=== PATIENT | female | born 1985 | race Caucasian/White ===

== ENCOUNTER 2020-10-30 12:08 | Inpatient (IN) | payer BC, OTHER ==
[2020-12-12] MEDS ORDERED: PHENYLEPHRINE-NS 100 MCG/ML 10 ML SYRINGE ONE (11:03)
[2020-12-12] MEDS ORDERED: Ondansetron PF 4 MG/2 ML Vial ONE (11:03)
[2020-12-12] MEDS ORDERED: Phenylephrine 10 MG/ML VIAL ONE (11:03)
[2020-12-12] MEDS ORDERED: Oxytocin 10 UNITS/ML VIAL ONE (11:03)
[2020-12-12] MEDS ORDERED: Morphine PF 10 MG/10 ML VIAL ONE (11:04)
[2020-12-12] MEDS ORDERED: Ketorolac Tromethamine 30 MG/ML VIAL ONE (11:04)
[2020-12-12] MEDS ORDERED: ePHEDrine Sulfate 50 MG/10 ML VIAL ONE (11:04)
[2020-12-12 11:15] VITALS: BMI 28.1
[2020-12-12] MEDS ORDERED: Lactated Ringer's 1,000 ML IV SCH (11:23)
[2020-12-12] MEDS ORDERED: hydrALAZINE 20 MG/ML VIAL SLOW IVP PRN (11:23)
[2020-12-12] MEDS ORDERED: Bicitra 30 ML UDCUP PO PRN (11:23)
[2020-12-12] MEDS ORDERED: Famotidine/PF 20 mg/2ml Vial SLOW IVP PRN (11:23)
[2020-12-12] MEDS ORDERED: Promethazine HCl 25 MG/ML VIAL IM PRN ×2 (11:23→11:43)
[2020-12-12] MEDS ORDERED: CEFAZOLIN 2 GM in Premix Bag 1 BAG IVPB SCH (11:23)
[2020-12-12] MEDS ORDERED: Ondansetron PF 4 MG/2 ML Vial IVP PRN ×2 (11:23→11:43)
[2020-12-12] MEDS ORDERED: Naloxone HCl 0.4 mg/ml Vial IVP PRN ×2 (11:43)
[2020-12-12] MEDS ORDERED: Promethazine HCl 25 MG SUPP PR PRN (11:43)
[2020-12-12] MEDS ORDERED: L&D-Morphine 4 MG/ML VIAL SLOW IVP PRN (11:43)
[2020-12-12] MEDS ORDERED: Meperidine HCl/PF 25 MG/ML VIAL SLOW IVP PRN (11:43)
[2020-12-12] MEDS ORDERED: Eucerin (Mineral Oil/Petrolatum,White) 30 gm Jar TOP PRN (11:43)
[2020-12-12] MEDS ORDERED: diphenhydrAMINE 50 MG/ML VIAL IVP PRN (11:43)
[2020-12-12] MEDS ORDERED: HYDROmorphone 2 MG/ML VIAL SLOW IVP PRN (11:43)
[2020-12-12] MEDS ORDERED: Naloxone HCl 0.4 mg/ml Vial IV PRN (11:43)
[2020-12-12] MEDS ORDERED: Ondansetron HCl/PF 4 MG/2 ML Vial IVP PRN (11:43)
[2020-12-12] MEDS ORDERED: Ketorolac Tromethamine 30 MG/ML VIAL IVP SCH (11:45)
[2020-12-12] MEDS ORDERED: Communication Order-Pharmacy FS SCH (11:45)
[2020-12-12 12:12] LABS: Hemoglobin 13.8 g/dL (12.0-15.5); Mean Corpuscular HGB CONC 33.7 g/dL (32.0-36.0); Mean Corpuscular Hemoglobin 31.9 pg (27.0-33.0); Mean Corpuscular Volume 94.5 fl (81.6-98.3); Mean Platelet Volume 13.1 fl (7.4-10.4); Platelet Count 146 10x3/uL (150-450); RBC Distribution Width 13.8 % (11.5-14.5); Red Blood Cell (RBC) Count 4.33 10x6/uL (3.90-5.03); White Blood Cell (WBC) Count 11.4 10x3/uL (3.5-10.5)
[2020-12-12 12:40] LABS: Hep B Surf Ag Non-Reactive S/CO (NonReactive); Syphilis Antibody Nonreactive (Nonreactive); Syphilis Antibody Index 0.04 S/CO (<1.00 Non-Reactive)
[2020-12-12 13:00] LABS: HBSAg Index 0.15 S/CO (0-0.99)
[2020-12-12] MEDS ORDERED: NS w/ Oxytocin 30 units 500 ML ONE (16:08)
[2020-12-12] MEDS: Ketorolac Tromethamine 30 MG/ML VIAL IVP PRN (17:45)
[2020-12-12] MEDS ORDERED: Fentanyl 100 MCG/2 ML VIAL ONE (22:11)
[2020-12-12] MEDS ORDERED: Fentanyl 100 MCG/2 ML VIAL SLOW IVP SCH (22:15)
[2020-12-13] MEDS: Ketorolac Tromethamine 30 MG/ML VIAL IVP PRN (00:04)
[2020-12-13] MEDS ORDERED: HYDROcodone/Acetaminophen 5/325 mg Tablet PO PRN (03:55)
[2020-12-13 05:20] LABS: Hemoglobin 8.8 g/dL (12.0-15.5); Mean Corpuscular HGB CONC 33.2 g/dL (32.0-36.0); Mean Corpuscular Hemoglobin 31.5 pg (27.0-33.0); Mean Platelet Volume 12.4 fl (7.4-10.4); Platelet Count 210 10x3/uL (150-450); RBC Distribution Width 14.1 % (11.5-14.5); Red Blood Cell (RBC) Count 2.79 10x6/uL (3.90-5.03); White Blood Cell (WBC) Count 29.8 10x3/uL (3.5-10.5)
[2020-12-13 06:15] LABS: Band 20 % (5-11); Lymphocytes 6 % (21-51); Monocytes 3 % (0-10); Neutrophil 71 % (42-75)
[2020-12-13 06:18] LABS: Large Platelets MODERATE; Platelet Morphology Comment Appears Adequate
[2020-12-13 06:19] LABS: MDiff Complete? YES; Manual Diff?? YES
[2020-12-13] MEDS ORDERED: CEFAZOLIN 2 GM in Premix Bag 1 BAG IVPB SCH (07:00)
[2020-12-13] MEDS ORDERED: PROPOFOL 20 ML ONE (07:04)
[2020-12-13] MEDS ORDERED: Fentanyl 100 MCG/2 ML VIAL ONE ×2 (07:04→09:58)
[2020-12-13] MEDS ORDERED: Lidocaine 1% PF 5 ML VIAL ONE (07:05)
[2020-12-13] MEDS ORDERED: Rocuronium Bromide 10 MG/ML (10ML VIAL) ONE (07:05)
[2020-12-13] MEDS ORDERED: Succinylcholine 200 MG/10 ml SYRINGE FS ONE (07:05)
[2020-12-13] MEDS ORDERED: Glycopyrrolate 0.2 MG/ML 5 ML SYRINGE ONE (07:05)
[2020-12-13] MEDS ORDERED: Dexamethasone 4 mg/ml Vial ONE (07:08)
[2020-12-13] MEDS ORDERED: Ondansetron PF 4 MG/2 ML Vial ONE (07:08)
[2020-12-13] MEDS ORDERED: Sodium Chloride 0.9% 250 ML 250 ML ONE (07:11)
[2020-12-13] MEDS ORDERED: Tranexamic Acid 1,000 MG in Sodium Chloride 0.9% 250 ML 250 ML IVPB SCH (07:30)
[2020-12-13] MEDS ORDERED: Tranexamic Acid 1,000 MG in Sodium Chloride 0.9% 100 ML IVPB SCH (07:30)
[2020-12-13] MEDS ORDERED: EPINEPHrine 1 MG/ML AMP ONE (08:26)
[2020-12-13] MEDS ORDERED: Bupivacaine PF 0.5% 30 ML VIAL ONE (08:27)
[2020-12-13] MEDS ORDERED: Neosporin Ophth Soln 10 ml Bottle ONE (09:30)
[2020-12-13] MEDS ORDERED: Promethazine HCl 25 MG/ML VIAL SLOW IVP PRN (11:01)
[2020-12-13] MEDS ORDERED: Ondansetron HCl/PF 4 MG/2 ML Vial IVP PRN (11:01)
[2020-12-13] MEDS ORDERED: Promethazine HCl 25 MG/ML VIAL IM PRN (11:01)
[2020-12-13] MEDS ORDERED: Adacel (T-DAP) 0.5 ML SYRINGE IM ONE (12:02)
[2020-12-13] MEDS ORDERED: diphenhydrAMINE 25 MG CAP PO PRN (12:02)
[2020-12-13] MEDS ORDERED: Acetaminophen 325 MG TAB PO PRN (12:02)
[2020-12-13] MEDS ORDERED: Ondansetron PF 4 MG/2 ML Vial IVP PRN (12:02)
[2020-12-13] MEDS ORDERED: Bisacodyl 10 MG SUPP PR PRN (12:02)
[2020-12-13] MEDS ORDERED: Zolpidem Tartrate 5 MG TAB PO PRN (12:02)
[2020-12-13] MEDS ORDERED: Lanolin Ointment 7 GM TUBE TOP PRN (12:02)
[2020-12-13] MEDS ORDERED: Meperidine HCl/PF 25 MG/ML VIAL IM PRN (12:02)
[2020-12-13] MEDS ORDERED: hydrALAZINE 20 MG/ML VIAL SLOW IVP PRN (12:02)
[2020-12-13] MEDS: Morphine 2 MG/ML VIAL SLOW IVP PRN ×2 (13:20→19:20)
[2020-12-13] MEDS: Simethicone Chewable 80 MG TAB PO PRN (13:20)
[2020-12-13] MEDS: Lactated Ringer's 1,000 ML IV SCH ×2 (14:05→17:14)
[2020-12-13] MEDS: Ibuprofen 800 MG TAB PO SCH ×2 (15:57→22:42)
[2020-12-13] MEDS: Cepastat Lozenges 1 LOZ PO PRN (16:23)
[2020-12-13] MEDS: CEFAZOLIN 2 GM in Premix Bag 1 BAG IVPB SCH (20:27)
[2020-12-13] MEDS: Docusate Calcium (SURFAK) 240 MG CAP PO SCH (22:41)
[2020-12-13] MEDS: Ferrous Sulfate 325 MG TAB PO SCH (22:44)
[2020-12-14] MEDS: Simethicone Chewable 80 MG TAB PO PRN (00:11)
[2020-12-14] MEDS: Morphine 2 MG/ML VIAL SLOW IVP PRN (00:11)
[2020-12-14] MEDS: Cepastat Lozenges 1 LOZ PO PRN ×2 (00:15→09:00)
[2020-12-14] MEDS: CEFAZOLIN 2 GM in Premix Bag 1 BAG IVPB SCH ×3 (04:07→20:04)
[2020-12-14 06:53] LABS: Mean Corpuscular Hemoglobin 31.6 pg (27.0-33.0); Mean Corpuscular Volume 92.9 fl (81.6-98.3); Mean Platelet Volume 11.2 fl (7.4-10.4); Platelet Count 130 10x3/uL (150-450); RBC Distribution Width 15.2 % (11.5-14.5); Red Blood Cell (RBC) Count 2.53 10x6/uL (3.90-5.03); White Blood Cell (WBC) Count 18.3 10x3/uL (3.5-10.5)
[2020-12-14] MEDS: Lactated Ringer's 1,000 ML IV SCH ×2 (07:15→11:55)
[2020-12-14] MEDS: Ibuprofen 800 MG TAB PO SCH ×2 (07:16→13:41)
[2020-12-14] MEDS: Ferrous Sulfate 325 MG TAB PO SCH ×2 (10:03→20:16)
[2020-12-14] MEDS: Docusate Calcium (SURFAK) 240 MG CAP PO SCH ×2 (10:03→20:16)
[2020-12-14] MEDS: Prenatal Vitamin 1 TAB PO SCH (10:03)
[2020-12-14] MEDS: HYDROcodone/Acetaminophen 5/325 mg Tablet PO PRN ×3 (10:07→20:16)
[2020-12-15] MEDS: Simethicone Chewable 80 MG TAB PO PRN ×2 (00:20→08:59)
[2020-12-15] MEDS: Ibuprofen 800 MG TAB PO SCH ×5 (00:20→23:34)
[2020-12-15] MEDS: Lactated Ringer's 1,000 ML IV SCH ×2 (04:30→05:19)
[2020-12-15] MEDS: CEFAZOLIN 2 GM in Premix Bag 1 BAG IVPB SCH (04:32)
[2020-12-15] MEDS: Ferrous Sulfate 325 MG TAB PO SCH ×2 (08:59→23:33)
[2020-12-15] MEDS: Docusate Calcium (SURFAK) 240 MG CAP PO SCH ×2 (08:59→23:33)
[2020-12-15] MEDS: Prenatal Vitamin 1 TAB PO SCH (08:59)
[2020-12-15] MEDS: HYDROcodone/Acetaminophen 5/325 mg Tablet PO PRN ×2 (09:06→13:22)
[2020-12-15] MEDS ORDERED: Cefadroxil Hydrate 250 mg/5 ml Suspensio PO SCH (13:00)
[2020-12-15] MEDS: Cefadroxil Hydrate 250 mg/5 ml Suspensio PO SCH (23:33)
[2020-12-16] MEDS: HYDROcodone/Acetaminophen 5/325 mg Tablet PO PRN ×2 (04:31→18:47)
[2020-12-16] MEDS: Ibuprofen 800 MG TAB PO SCH ×4 (07:30→23:33)
[2020-12-16 08:36] LABS: Hemoglobin 7.4 g/dL (12.0-15.5); Mean Corpuscular HGB CONC 33.3 g/dL (32.0-36.0); Mean Corpuscular Hemoglobin 31.6 pg (27.0-33.0); Mean Corpuscular Volume 94.9 fl (81.6-98.3); Mean Platelet Volume 10.3 fl (7.4-10.4); Platelet Count 202 10x3/uL (150-450); Red Blood Cell (RBC) Count 2.34 10x6/uL (3.90-5.03); White Blood Cell (WBC) Count 14.5 10x3/uL (3.5-10.5)
[2020-12-16] MEDS: Simethicone Chewable 80 MG TAB PO PRN (09:23)
[2020-12-16] MEDS: Docusate Calcium (SURFAK) 240 MG CAP PO SCH ×2 (09:23→21:07)
[2020-12-16] MEDS: Prenatal Vitamin 1 TAB PO SCH (09:24)
[2020-12-16] MEDS: Ferrous Sulfate 325 MG TAB PO SCH ×2 (09:24→21:07)
[2020-12-16] MEDS: Cefadroxil Hydrate 250 mg/5 ml Suspensio PO SCH ×2 (12:08→23:33)
[2020-12-16] MEDS ORDERED: Acetaminophen 500 MG TAB PO PRN (12:41)
[2020-12-17 07:59] VITALS: BP 136/76; TEMP 98.8
[2020-12-17] MEDS: Ibuprofen 800 MG TAB PO SCH (12:20)
[2020-12-17] MEDS: HYDROcodone/Acetaminophen 5/325 mg Tablet PO PRN (12:20)
== END 2020-12-17 12:30 | disposition home or self-care (01) | DRG 787 ==
LOC: CSHLD/OP 12:08 → EDSTATUS 12-09 12:58 → CSHLD 12-12 09:16 → CSHPP 12-12 16:40
PROVIDERS: ADMIT Obstetrics & Gynecology; ATTEND Obstetrics & Gynecology
PROC: 10D00Z1 Extraction of Products of Conception, Low, Open Approach (ICD-10-PCS; principal; 2020-12-12)
PROC: 0TNB0ZZ Release Bladder, Open Approach (ICD-10-PCS; 2020-12-12)
PROC: 0UN90ZZ Release Uterus, Open Approach (ICD-10-PCS; 2020-12-12)
PROC: 0KQL0ZZ Repair Left Abdomen Muscle, Open Approach (ICD-10-PCS; 2020-12-12)
PROC: 3E0P05Z Introduction of Adhesion Barrier into Female Reproductive, Open Approach (ICD-10-PCS; 2020-12-12)
PROC: 30233N1 Transfusion of Nonautologous Red Blood Cells into Peripheral Vein, Percutaneous Approach (ICD-10-PCS; 2020-12-13)
PROC: 30233S1 Transfusion of Nonautologous Globulin into Peripheral Vein, Percutaneous Approach (ICD-10-PCS; 2020-12-13)
PROC: 0JC80ZZ Extirpation of Matter from Abdomen Subcutaneous Tissue and Fascia, Open Approach (ICD-10-PCS; 2020-12-13)
DX: O34.211 Maternal care for low transverse scar from previous cesarean delivery (principal); O71.7 Obstetric hematoma of pelvis; O48.0 Post-term pregnancy; Z3A.40 40 weeks gestation of pregnancy; Z37.0 Single live birth; O16.4 Unspecified maternal hypertension, complicating childbirth; O90.81 Anemia of the puerperium; D64.9 Anemia, unspecified; O99.892 Other specified diseases and conditions complicating childbirth; N73.6 Female pelvic peritoneal adhesions (postinfective); O71.89 Other specified obstetric trauma
CPT/HCPCS: 36415; 36430; 51702; 74177; 85025; 85027; 85461; 86780; 86850; 86870; 86900; 86901; 86922; 87340; 87635; 90384; 96372; J0171; J0690; J1100; J1200; J1885; J2270; J2370; J2405; J2590; J2704; J3010; J3490; J7050; P9016; Q0163; S0020; U0003; U0005

== ENCOUNTER 2020-12-09 11:51 | Outpatient (CLI) | payer BC ==
[2020-12-10 05:52] LABS: SARS-CoV-2 PCR by NAA Not Detected (NotDetected)
== END 2020-12-09 11:52 | disposition home or self-care (01) ==
LOC: CSHLAB 11:51
PROVIDERS: ATTEND Obstetrics & Gynecology
DX: Z20.822 Contact with and (suspected) exposure to COVID-19 (principal)
CPT/HCPCS: 87635; U0003; U0005

== ENCOUNTER 2022-11-23 15:37 | Outpatient (CLI) | payer BC | END 2022-11-23 15:38 | disposition home or self-care (01) | LOC: CSHMAMMO 15:37 | PROVIDERS: ATTEND Obstetrics & Gynecology | DX: Z12.31 Encounter for screening mammogram for malignant neoplasm of breast (principal); Z98.890 Other specified postprocedural states | CPT/HCPCS: 77063; 77067 ==